=== PATIENT | female | born 2000 | race Caucasian/White ===

== ENCOUNTER 2025-01-28 03:43 | Emergency (ER) | payer BC, SELFPAY ==
[2025-01-28] VITALS (9 sets, daily range): BP systolic 112–126; BP diastolic 58–84; PULSE 65–99; RESP 14–18; TEMP 36.9; O2SAT 95–98; BMI 24.1
--- NOTE | 2025-01-28 03:58 | ED_ITS ---
HPI - Abdominal Pain General Chief Complaint: Nausea/Vomiting/Diarrhea Stated Complaint: Stomach pain, Vomiting Blood, hot flashes Time Seen by Provider: 01/28/25 03:52 History of Present Illness HPI narrative: 24-year-old female with history of prior nausea and vomiting episodes, visiting from [place], has had gastroenterology consultation 2020 with upper and lower endoscopies, prior H pylori gastritis diagnosis treated with course of omeprazole and multi drug antibiotic regimen course, seemed to get better, off of all antacids. Now having multiple episodes nausea and vomiting nonbloody, then had emesis episode with some blood flecks, no diarrhea, no black or red stools. No injury or trauma. No recent NSAID use. Does not take blood thinner medications. She does not have recent cough or shortness of breath. No frequent or painful urination. No back or flank pain. No vaginal bleeding. Does not believe herself to be currently . Related Data Previous Rx's ?Medication ?Instructions ?Recorded omeprazole 20 mg capsule,delayed 20 mg PO DAILY 30 day s #30 caps 01/28/25 release ondansetron 4 mg disintegrating 4 mg PO Q6H PRN nausea and 01/28/25 tablet vomiting #10 tabs sucralfate 1 gram tablet (Carafate) 1 g PO BID 30 days #60 tabs 01/28/25 Allergies Allergy/AdvReac Type Severity Reaction Status Date / Time No Known Drug Allergies Allergy Verified 01/28/25 04:03 Patient History Social History Smoking Status: Never smoker Exam Narrative Exam Narrative: GENERAL: Well-developed patient, in mild distress. HEAD: Atraumatic. Normocephalic. EYES: Pupils equal round and reactive. Extraocular motions intact. No scleral icterus. No injection or drainage. ENT: Nose without bleeding, purulent drainage. Throat without erythema, tonsillar hypertrophy or exudate. Airway patent. NECK: Trachea midline. Non tender CARDIOVASCULAR: Regular rate and rhythm without murmurs, gallops, or rubs. RESPIRATORY: Clear to auscultation. Breath sounds equal bilaterally. No wheezes, rales, or rhonchi. GASTROINTESTINAL: Abdomen soft, mild tenderness epigastrium. Nondistended. EXTREMITIES: No edema or joint tenderness. BACK: Nontender without deformity or crepitance. No flank tenderness. NEURO: AOx3. Motor functions grossly nonfocal. SKIN: No rash or erythema of visible areas Initial Vital Signs Initial Vital Signs: Vital Signs Pulse Rate 93 H 01/28/25 03:55 Respiratory Rate 16 01/28/25 03:55 Pulse Oximetry 97 01/28/25 03:55 Oxygen Delivery Method Room Air 01/28/25 03:55 Course Orders Ordered: Discontinued Medications Sodium Chloride (Normal Saline 0.9%) 1,000 mls @ 1,000 mls/hr IV BOLUS ONE Stop: 01/28/25 05:09 Last Infusion: 01/28/25 05:22 Dose: Infused Documented By: Admin: 01/28/25 04:16 Dose: 1,000 mls/hr Documented By: DAKSHA Ondansetron HCl (Ondansetron 4 Mg/2 Ml Inj) 4 mg IV NOW ONE Stop: 01/28/25 04:14 Last Admin: 01/28/25 04:19 Dose: 4 mg Documented By: DAKSHA Ondansetron HCl (Ondansetron 4 Mg Odt Prepack) 1 bottle MISC DIRECTED ONE Stop: 01/28/25 06:12 Pantoprazole Sodium (Pantoprazole 40 Mg Vial) 40 mg IV NOW ONE Stop: 01/28/25 04:11 Last Admin: 01/28/25 04:16 Dose: 40 mg Documented By: DAKSHA Vital Signs Vital signs: Vital Signs - 8 hr 01/28/25 03:55 01/28/25 03:59 01/28/25 03:59 Temperature Pulse Rate 93 H 87 Respiratory Rate 16 Blood Pressure 120/77 Pulse Oximetry 97 97 Oxygen Delivery Method Room Air 01/28/25 04:00 01/28/25 04:00 01/28/25 04:03 Temperature 98.4 F Pulse Rate 92 H 96 H Respiratory Rate 18 Blood Pressure 119/74 125/84 Pulse Oximetry 97 98 Oxygen Delivery Method Room Air 01/28/25 04:31 01/28/25 04:32 01/28/25 04:32 Temperature Pulse Rate 99 H 90 Respiratory Rate Blood Pressure 126/71 Pulse Oximetry 95 97 Oxygen Delivery Method 01/28/25 05:00 01/28/25 05:00 01/28/25 05:30 Temperature Pulse Rate 83 71 Respiratory Rate Blood Pressure 112/58 L Pulse Oximetry 96 96 Oxygen Delivery Method 01/28/25 05:31 01/28/25 05:31 Temperature Pulse Rate 65 Respiratory Rate 14 Blood Pressure 118/63 Pulse Oximetry 97 Oxygen Delivery Method Room Air MDM - Abdominal Pain Lab Data Attestation: I reviewed the patient's lab results. Lab results narrative: White blood cell count 9500, hemoglobin 13.3, platelets adequate. Electrolytes unremarkable, normal serum CO2, normal renal function, glucose 120. Liver functions normal. Lipase normal. Urine test negative. Urine dip negative. 01/28/25 05:20 01/28/25 03:58 Labs: Lab Results 01/28/25 01/28/25 01/28/25 Range/Units 03:54 03:58 05:20 WBC 9.5 (4.5-11.0) X10^3/uL RBC 4.44 (4.0-5.2) X10^6/uL Hgb 13.3 12.1 (12.0-16.0) g/dL Hct 39.6 35.8 L (36-46) % MCV 89.2 (80-100) fL MCH 30.0 (26-34) PG MCHC 33.6 (30-36) % RDW 13.0 (11.6-14.8) % Plt Count 198 (150-400) X10^3/uL Neut % (Auto) 75.6 H (50-75) % Lymph % (Auto) 18.1 L (25-40) % [place] % (Auto) 5.4 (3-14) % Eos % (Auto) 0.5 L (2-4) % Baso % (Auto) 0.4 (0-2) % Neut # (Auto) 7200 H (1778-8216) /uL Lymph # (Auto) 1700 (3663-2193) /uL [place] # (Auto) 500 (0-900) /uL Eos # (Auto) 100 (0-450) /uL Baso # (Auto) 0 (0-100) /uL Sodium 137 (137-145) mmol/L Potassium 3.8 (3.4-5.1) mmol/L Chloride 106 (98-107) mmol/L Carbon Dioxide 24 (22-32) mmol/L BUN 13 (7-17) mg/dL Creatinine 0.82 (0.52-1.04) mg/dL Estimated GFR > 60 (>60) mL/min BUN/Creatinine Ratio 15.9 (6-22) Glucose 120 H (70-99) mg/dL Calcium 9.3 (8.4-10.2) mg/dL Total Bilirubin 0.8 (0.2-1.3) mg/dL AST 24 (14-36) IU/L ALT 16 (<35) IU/L Alkaline Phosphatase 56 (38-126) U/L Total Protein 7.8 (6.3-8.2) g/dL Albumin 4.7 (3.5-5.0) g/dL Globulin 3.1 (1.7-4.1) g/dL Albumin/Globulin Ratio 1.5 (1.0-2.8) Lipase 219 (23-300) U/L Ur Bilirubin Confirm Negative (Negative) Point of care testing: Point of Care Testing Test Results Negative Urine Dip Bedside Urine Glucose Negative Bedside Urine Bilirubin + 1 Bedside Urine Ketone - Negative Urine Specific Murray 1.030 Bedside Urine Occult Blood - Negative Bedside Urine pH 6.0 Bedside Urine Protein +/- 15 Bedside Urine Urobilinogen - Negative Bedside Urine Nitrite - Negative Bedside Urine Leukocytes - Negative Esterase MDM Narrative Medical decision making narrative: 24-year-old female with a prior upper endoscopy and lower endoscopy in home [facility], visiting [facility], anticipating traveling with family up to [place] on cruise ship vacation soon, before returning to home [facility]. Prior treatment for H pylori 2020, has been off antacids. Multiple episodes nausea and vomiting, with blood flecks in emesis per photo provided. Currently she feels better. IV fluids, IV Protonix, IV ondansetron. Labs pending. Lab data: White blood cell count 9500, hemoglobin 13.3, platelets adequate. Electrolytes unremarkable, normal serum CO2, normal renal function, glucose 120. Liver functions normal. Lipase normal. Urine test negative. Urine dip negative. CT angiogram abdomen and pelvis without/with contrast, GI bleed protocol. Impressions: ?No CT findings of gastrointestinal hemorrhage. No evidence of colitis diverticulitis bowel obstruction obstructive uropathy or acute appendicitis. ? See tele radiology report. Copy of the report provided in the patient, who will be traveling next to [place] then [place] then back home to [place]. Repeat hemoglobin 12, after IV fluids prior to CT angiogram, consistent with dilutional change. No active bleeding while in the emergency department. Case discussed with surgery Dr. Sumner who believes patient can be discharged home, no emergent endoscopy now, agrees patient can be restarted on omeprazole, perhaps also with Carafate and acid binder, and follow up in [place]. Aware she will be traveling, return precautions to nearest available port during her vacation upcoming. Advice relayed to the patient/mother, who seemed comfortable with this plan. I sent prescription for omeprazole along with Carafate to their requested [facility] pharmacy in [place], so that they can intercept the prescription tomorrow [place] [address] toward [place] for their cruise. Advice use of [id number] omeprazole available from local [employer] type stores to be in tomorrow before their journey. Advised recheck at nearest emergency department along their vacation, otherwise with primary care provider and perhaps gastroenterology on return from vacation to home [facility]. Discharged home with family. Discharge Plan Departure Patient Disposition: Home Clinical Impression: Upper gastrointestinal bleeding, Nausea and vomiting, History of Helicobacter pylori infection, History of gastritis Activity Restrictions/Additional Instructions: History of prior H pylori gastritis diagnosis 2020 in [place] with Gastroenterology consultation upper and lower endoscopy evaluations in the past. Having recent nausea and vomiting initially nonbloody, then with some blood flecks per photo provided. No black or red stools. Hemoglobin 12 today, after IV fluids did drop to 11 which likely represents dilution. CT angiogram abdomen and pelvis GI bleeding protocol did not show any extravasation or active bleeding changes, nor any active infectious or inflammatory condition or perforation or bowel obstruction or acute changes. IV Protonix antacid given. IV Zofran/ondansetron given to control nausea. Case discussed with on-call surgery Dr. Sumner who felt that you did not require emergent endoscopy today, that restart of antacid regimen omeprazole perhaps along with Carafate we would be reasonable, then to consider follow up endoscopy in your home [place] area. You are next heading to [facility] in anticipation of cruise to [facility]. We will send prescriptions for your omeprazole and Carafate and ODT ondansetron to [facility], as there are no other [facility] pharmacies in the region. 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 Omeprazole and Carafate as directed, ODT ondansetron to control nausea if needed. Return to the nearest emergency department if you should have any further GI bleeding symptoms. Follow up with your gastroenterology specialist in the [place] area. Avoid medications that can inflame the stomach such as aspirin, Motrin, naproxen. Avoid carbonated beverages, alcohol, acidic, and caffeinated beverages. Prescriptions: New omeprazole 20 mg capsule,delayed release(DR/EC) 20 mg PO DAILY 30 Days Qty: 30 0RF sucralfate [Carafate] 1 gram tablet 1 g PO BID 30 Days Qty: 60 0RF ondansetron 4 mg tablet,disintegrating 4 mg PO Q6H PRN (Reason: nausea and vomiting) Qty: 10 0RF Stand Alone Forms: Patient Portal/API
[2025-01-28 04:11] LABS: Add Manual Diff / Slide Review NO; Hematocrit 39.6 % (36-46); Hemoglobin 13.3 g/dL (12.0-16.0); Lymphocytes Absolute Auto 1700 /uL (1100-4500); Mean Corpuscular HGB Conc 33.6 % (30-36); Mean Corpuscular Hemoglobin 30.0 PG (26-34); Mean Corpuscular Volume 89.2 fL (80-100); Platelet Count 198 X10^3/uL (150-400)
--- NOTE | 2025-01-28 04:12 | DI.CT.S_ITS ---
PROCEDURE: CT ANGIO ABD/PEL GI BLEED INDICATIONS: Nausea/Vomiting/Diarrhea TECHNIQUE: After the administration of intravenous contrast, 2.5 mm thick sections acquired from the diaphragm to the symphysis. 10 mm maximum-intensity projection (MIP) reformats were then acquired. For radiation dose reduction, the following was used: automated exposure control. COMPARISON: None. FINDINGS: Image Quality: Diagnostic. Lower Chest: No significant findings. Liver: No solid mass. Gallbladder: No radiopaque gallstones or wall thickening. Biliary ducts: No biliary dilation. Pancreas: No ductal dilation. Spleen: Size is within normal limits. Adrenal Glands: No adrenal nodules. Kidneys and Ureters: No hydronephrosis. No solid mass. No complex renal cystic lesion which requires follow up. Stomach and Bowel: Normal colonic caliber, without significant wall thickening. Peritoneum: No abnormal intraperitoneal fluid. No free air. Ventral Wall: No hernia. Abdominal Nodes: No retroperitoneal or mesenteric adenopathy by size criteria. Vessels: Aorta and inferior vena cava are normal in size. PELVIS: Pelvic Organs: Unremarkable. Bladder: Unremarkable. Pelvic Nodes: No enlarged lymph nodes. Miscellaneous: No inguinal hernias are seen. Bones: No aggressive osseous abnormality. IMPRESSION: No evidence of active contrast extravasation into the gastrointestinal tract. No acute findings within the abdomen or pelvis. Findings are concordant with preliminary interpretation provided by [facility]. Dictated by: Mayito Vazquez M.D. on 01/28/2025 at 8:57 Approved by: Mayito Vazquez M.D. on 01/28/2025 at 9:01
[2025-01-28 04:14] LABS: Ictotest Urine Negative (Negative)
[2025-01-28] MEDS: PANTOPRAZOLE 40 MG VIAL IV (04:16)
[2025-01-28] MEDS: SODIUM CHLORIDE 0.9% 1,000 ML 1000 ML IV (04:16)
[2025-01-28] MEDS: ONDANSETRON 4 MG/2 ML INJ IV (04:19)
[2025-01-28 04:20] LABS: Alanine Aminotransferase 16 IU/L (<35); Albumin 4.7 g/dL (3.5-5.0); Albumin Globulin Ratio 1.5 (1.0-2.8); Alkaline Phosphatase 56 U/L (38-126); Blood Urea Nitrogen 13 mg/dL (7-17); Calcium 9.3 mg/dL (8.4-10.2); Carbon Dioxide 24 mmol/L (22-32); Chloride 106 mmol/L (98-107); Estimated Glomerular Filt Rate > 60 mL/min (>60); Globulin 3.1 g/dL (1.7-4.1); Glucose 120 mg/dL (70-99); HEMOLYSIS < 15 (0-50); Lipase 219 U/L (23-300); Potassium 3.8 mmol/L (3.4-5.1); Sodium 137 mmol/L (137-145); Total Protein 7.8 g/dL (6.3-8.2)
--- NOTE | 2025-01-28 04:22 | PC.NURSE ---
Pt ambulatory to imaging with irrigation service technician
[2025-01-28 05:25] LABS: Hematocrit 35.8 % (36-46); Hemoglobin 12.1 g/dL (12.0-16.0)
== END 2025-01-28 06:30 | disposition home or self-care (01) ==
PROVIDERS: Emergency Provider Emergency Medicine
DX: K92.2 Gastrointestinal hemorrhage, unspecified (principal); R11.2 Nausea with vomiting, unspecified; Z86.19 Personal history of other infectious and parasitic diseases; Z87.19 Personal history of other diseases of the digestive system
CPT/HCPCS: 36415; 74174; 80053; 81003; 81025; 83690; 85014; 85018; 85025; 96361; 96374; 96375; 99284; J2405; J2470; Q9967